=== PATIENT | male | born 1995 | race Caucasian/White ===

== ENCOUNTER 2020-09-17 10:14 | Outpatient (REF) | payer OTHER, SELFPAY | END 2020-09-17 10:15 | disposition home or self-care (01) | LOC: HO.LAB 10:14 | PROVIDERS: Visit Provider Internal Medicine | DX: Z20.828 Contact with and (suspected) exposure to other viral communicable diseases (principal) | CPT/HCPCS: C9803; U0003 ==

== ENCOUNTER 2021-08-02 09:53 | Outpatient (REF) | payer OTHER, SELFPAY | END 2021-08-02 09:54 | disposition home or self-care (01) | LOC: HO.LAB 09:53 | PROVIDERS: Visit Provider Internal Medicine | DX: Z20.822 Contact with and (suspected) exposure to COVID-19 (principal) | CPT/HCPCS: C9803; U0003; U0005 ==

== ENCOUNTER 2021-08-03 18:56 | Emergency (ER) | payer OTHER, SELFPAY ==
--- NOTE | ~2021-08-03 | XR_ITS ---
EXAMINATION: XR CHEST CLINICAL INFORMATION: Covid positive COMPARISON: None TECHNIQUE: Frontal portable view of the chest was obtained. 9:27 PM FINDINGS: No significant abnormality is noted involving the heart, lungs, mediastinum, bony thorax or soft tissues. XR/XR chest 1V IMPRESSION: Unremarkable examination.
[2021-08-03 19:23] VITALS: BP 134/84; PULSE 124; RESP 18; TEMP 37.6; O2SAT 98; BMI 34.9
[2021-08-03 20:18] VITALS: BP 114/63; PULSE 99; RESP 22; TEMP 37.2; O2SAT 100
--- NOTE | 2021-08-03 21:10 | ED.SOB ---
HPI - SOB/Dyspnea General Chief Complaint: Dyspnea Stated Complaint: diff breathing, covid + Time Seen by Provider: 08/03/21 21:10 Source: patient Mode of arrival: ambulatory Limitations: no limitations History of Present Illness HPI Narrative: Patient tested positive for COVID yesterday with symptoms of cough, shortness of breath, nausea, vomiting ,body aches fever for last 1 week comes here as not feeling good on arrival patient was saturating 100% very anxious no active vomiting in the ER patient lost taste sensation today Related Data Previous Rx's Medication Instructions Recorded dexamethasone 6 mg tablet 6 mg PO DAILY #7 tab 08/03/21 (Decadron) ondansetron 4 mg disintegrating 4 mg PO Q6-8H PRN #7 tab 08/03/21 tablet Allergies Allergy/AdvReac Type Severity Reaction Status Date / Time No Known Allergies Allergy Verified 08/03/21 21:23 Review of Systems Review of Systems: Yes all other systems are reviewed and are negative PMFSH Social History Social History Advance Directives: No Advance Directives Information Provided: Yes Physical Exam Vital Signs: Vital Signs: Last Vital Signs Temp 100.2 F 08/03/21 21:37 Pulse 108 H 08/03/21 21:37 Resp 18 08/03/21 21:37 BP 114/65 08/03/21 21:37 Pulse Ox 95 08/03/21 21:37 Body Mass Index 34.9 Appearance: Alert. Oriented X3. No acute distress. Anxious ENT: Pharynx normal. Oral Mucosa moist Neck: Normal inspection. Neck supple. CVS: Normal heart rate and rhythm. Pulses normal. Respiratory: No respiratory distress. Equal air entry bilateral, no wheezing/rales/rhonchi Abdomen: Soft and nontender. Bowel sounds are present, Skin: Skin warm and dry. Normal skin color. Normal skin turgor. Extremities: No lower extremity edema. No calf tenderness Neuro: Oriented X 3. MDM - SOB/Dyspnea MDM Narrative Medical decision making narrative: Patient with COVID symptoms for last 7 days chest x-ray negative for infiltrate patient asking for medication will give him Decadron although it may not work and Zofran symptomatic treatment Lab Data Attestation: I reviewed the patient's lab results. Discharge Plan Discharge Clinical Impression: COVID-19 Patient Disposition: Home, Self-Care Instructions: COVID-19 (Coronavirus Disease 2019) (ED) Additional Instructions: Keep isolated with social distancing for total of at least 2 weeks Medication as advised Follow-up with your PCP Drink plenty of fluids Prescriptions: New dexamethasone [Decadron] 6 mg tablet 6 mg PO DAILY Qty: 7 RF: 0 ondansetron 4 mg tablet,disintegrating 4 mg PO Q6-8H PRN (Reason: nausea and vomiting) Qty: 7 RF: 0 Discharge Date/Time: 08/03/21 22:08
[2021-08-03 21:37] VITALS: BP 114/65; PULSE 108; RESP 18; TEMP 37.9; O2SAT 95
[2021-08-03] MEDS: dexAMETHasone 6 MG TABLET PO (21:41)
[2021-08-03] MEDS: Ondansetron ODT 4 MG TAB.RAPDIS TRANSLINGU (21:42)
== END 2021-08-03 22:08 | disposition home or self-care (01) ==
PROVIDERS: Emergency Provider Internal Medicine
DX: U07.1 COVID-19 (principal); R06.02 Shortness of breath; R05 Cough; Z79.899 Other long term (current) drug therapy
CPT/HCPCS: 71045; 99283; J8540

== ENCOUNTER 2022-03-29 10:57 | Emergency (ER) | payer OTHER, SELFPAY ==
[2022-03-29 11:02] VITALS: BP 153/83; PULSE 90; O2SAT 97
== END 2022-03-29 14:38 | disposition left against medical advice (07) ==
PROVIDERS: Emergency Provider Emergency Medicine
DX: R11.10 Vomiting, unspecified (principal); R19.7 Diarrhea, unspecified